=== PATIENT | male | born 1985 ===

== ENCOUNTER 2018-03-21 11:37 | Emergency (ER) | payer BC ==
[2018-03-21 11:52] VITALS: TEMP 98; BMI 42.7
--- NOTE | 2018-03-21 12:28 | ED PDOC ---
Arrival/HPI - General Chief Complaint: Cough, Cold, Congestion Historian: Patient - History of Present Illness Narrative History of Present Illness (Text): 03/21/18 12:24 32 y/o male, no significant pmh, nkda, c/o lt. sided chest pain x 2-4 weeks. Pt. stated that he flew to [facility] from [facility] about 4 weeks ago, been having coughing for the past 4 weeks, flew back from the [facility] about 2 weeks ago and still coughing, coughing associated with the left sided rib pain, aggravated by coughing and moving, no night sweat, no fever, no palpitation, no numbness or tingling, no rash, no change in vision, no other medical or psychological complaints. Past Medical History - Provider Review Nursing Documentation Reviewed: Yes - Travel History If Yes, travel location?: [facility] - Psychiatric Hx Substance Use: No - Surgical History Other/Comment: nose surgery - Anesthesia Hx Anesthesia: Yes Hx Anesthesia Reactions: No Hx Malignant Hyperthermia: No Family/Social History - Physician Review Nursing Documentation Reviewed: Yes Family/Social History: Unknown Family HX Smoking Status: Never Smoked Hx Alcohol Use: Yes Frequency of alcohol use: Socially Hx Substance Use: No Allergies/Home Meds Allergies/Adverse Reactions: Allergies No Known Allergies Allergy (Verified 03/21/18 12:00) Review of Systems - Review of Systems Constitutional: absent: Fatigue, Fevers Eyes: absent: Vision Changes ENT: absent: Hearing Changes Respiratory: Cough. absent: SOB, Sputum, Wheezing Cardiovascular: absent: Chest Pain Gastrointestinal: absent: Abdominal Pain, Nausea, Vomiting Musculoskeletal: Arthralgias. absent: Back Pain, Neck Pain, Joint Swelling, Myalgias Skin: absent: Rash, Pruritis Neurological: absent: Headache, Dizziness Psychiatric: absent: Anxiety, Depression Physical Exam Vital Signs Reviewed: Yes Vital Signs Temp Pulse Resp BP Pulse Ox 03/21/18 11:51 98.0 F 120 H 18 147/93 H 96 Temperature: Afebrile Blood Pressure: Hypertensive Pulse: Tachycardic Respiratory Rate: Normal Appearance: Positive for: Well-Appearing, Non-Toxic, Comfortable Pain Distress: Moderate Mental Status: Positive for: Alert and Oriented X 3 - Systems Exam Head: Present: Atraumatic, Normocephalic Pupils: Present: PERRL Extroacular Muscles: Present: EOMI Conjunctiva: Present: Normal Mouth: Present: Moist Mucous Membranes Neck: Present: Normal Range of Motion Respiratory/Chest: Present: Clear to Auscultation, Good Air Exchange, Tender to Palpation (lt. lateral rib cage intercostal muscle region tenderness with the pain 100% reproducible with no rash or step off noted. ). No: Respiratory Di stress, Accessory Muscle Use, Wheezes, Decreased Breath Sounds, Rales, Retracting, Rhonchi, Tachypneic Cardiovascular: Present: Regular Rate and Rhythm, Normal S1, S2. No: Murmurs Abdomen: No: Tenderness, Distention, Peritoneal Signs, Rebound, Guarding Back: Present: Normal Inspection. No: CVA Tenderness, Midline Tenderness, Paraspinal Tenderness, Pain with Leg Raise, Decubitus Ulcer Upper Extremity: Present: Normal Inspection. No: Cyanosis, Edema Lower Extremity: Present: Normal Inspection. No: Edema Neurological: Present: GCS=15, CN II-XII Intact, Speech Normal, Motor Func Grossly Intact, Gait Normal, Memory Normal Skin: Present: Warm, Dry, Normal Color. No: Rashes Psychiatric: Present: Alert, Oriented x 3, Normal Insight, Normal Concentration Medical Decision Making ED Course and Treatment: 03/21/18 12:37 -Labs -CXR -EKG -Toradol/IVF -Observe and reassess 03/21/18 14:55 -EKG: NSR @ 95 BPM, no ST elevation or depression, no T wave inversion. -CXR show Unremarkable radiographs of the chest and left ribs. No left rib fracture. -Labs show no acute fidnings -CK within normal limit -Mg within normal limit -Lipase within normal limit -Trop within normal limit after 24 hours onset -Dimer is negative (WELLS Criteria is 1.5) -HEART Score is low: 1 -UA -Pt. is still borderline tachycardia around 97-105 with worsening tachycardia at ambulatory, CTA ordered. 03/21/18 17:15 -UA show show no UTI but mild hematuria, no cva tenderness -UDS ordered and pending result -CTA show No central pulmonary emboli identified. Nondiagnostic study be on the left and right main pulmonary arteries. If the suspicion for pulmonary embolism remains either repeat CT pulmonary angiogram or ventilation perfusion scan recommended. -Pt. walks around in the ER with me which he has exertional tachycardia around 120s and hypoxic to 92%, not sure the etiology for this hypoxic and tachycardia, discussed with Dr. Castro about this case and recommend admission for observation. -I have long discussions with the patient about staying in the ER and hospitalization for further test/treatment and specialist consultation but he refused. AMA AMA ER The patient refuses to stay in the Emergency Room (ER) to continue the care and wishes to leave the emergency department against my medical advice. Patient was told that staying in the ER is necessary and a full explanation of the reasons why was given, and understood by the patient with alert and oriented x4. The risk of leaving were explained in laymans term and including but not limited pulmonary embolism, cardiac arrythmia, endocrinology disease, cardiopulmonary disease, myocardial infarction, sepsis, pain, worsening of condition, permanent disability and from an undiagnosed or untreated condition. The patient accepts these risks, and is in my judgment is competent and capable of understanding the clinical situation and explanation of the risk of leaving. The patient is able to verbally repeated me back the above explained risks and benefits back to me, and verbally expressed understanding. Patient was given the opportunity to ask questions and change mind. The patient was instructed regarding the best care for the present symptoms, and to follow up as soon as possible with the primary care doctor including specialist or return to the emergency department at any time for continuing care. -You signs out against medical advice. You were given zithromax/prednisone/albuterol/motrin but this is not the definitive treatment and not standard treatment. Please follow up with your own pmd and specialists as soon as possible, please come back to the ER for further evaluation if you like to continue the care. - RAD Interpretation Radiology Orders: Date of service: 03/21/2018 PROCEDURE: Radiographs of the Chest and Left Ribs. HISTORY: lt. rib pain x 2-4 weeks COMPARISON: None available. TECHNIQUE: Frontal radiograph of the chest and multiple oblique radiographs of the left ribs were obtained. FINDINGS: LEFT RIBS: No fracture or focal lesion visualized. LUNGS: Clear. PLEURA: No pneumothorax or pleural fluid. CARDIOVASCULAR: Normal cardiac size. No pulmonary vascular congestion. No aortic atherosclerotic calcification present OTHER FINDINGS: None. IMPRESSION: Unremarkable radiographs of the chest and left ribs. No left rib fracture. CTA Chest: Date of service: 03/21/2018 PROCEDURE: CT Chest with contrast (Pulmonary Angiogram) HISTORY: lt. sided chest pain/cough, tachy COMPARISON: None available. TECHNIQUE: Axial computed tomography images were obtained of the chest in the pulmonary arterial phase of enhancement. Coronal and sagittal reformatted images were created and reviewed. Intravenous contrast dose: 100 cc Omnipaque 350. Mean Hounsfield value in the main pulmonary artery: 84.66 Radiation dose: Total exam DLP = 531.60 mGy-cm. This CT exam was performed using one or more of the following dose reduction techniques: Automated exposure control, adjustment of the mA and/or kV according to patient size, and/or use of iterative reconstruction technique. FINDINGS: PULMONARY ARTERIES: No major pulmonary or emboli identified. Nondiagnostic study beyond the right and left main pulmonary arteries. AORTA: No acute findings. No thoracic aortic aneurysm. No atherosclerotic calcification or mural plaque present. LUNGS: Unremarkable. No nodule, mass or pulmonary consolidation. PLEURAL SPACES: Unremarkable. No effusion or pneumothorax. HEART: Unremarkable. No cardiomegaly. No significant pericardial effusion. LYMPH NODES: No lymphadenopathy. BONES, CHEST WALL: Unremarkable. No fracture or destructive lesion OTHER FINDINGS: Unremarkable. IMPRESSION: No central pulmonary emboli identified. Nondiagnostic study be on the left and right main pulmonary arteries. If the suspicion for pulmonary embolism remains either repeat CT pulmonary angiogram or ventilation perfusion scan recommended. 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 Disposition/Present on Arrival - Present on Arrival Any Indicators Present on Arrival: No History of DVT/PE: No History of Uncontrolled Diabetes: No Urinary Catheter: No History of Decub. Ulcer: No History Surgical Site Infection Following: None - Disposition Have Diagnosis and Disposition been Completed?: Yes Diagnosis: Cough, Rib pain on left side, Noncompliance, Tachycardia, Hematuria Disposition: AGAINST MEDICAL ADVICE Disposition Time: 17:36 Patient Problems: Current Active Problems Problem Status Onset Cough Acute Rib pain on left side Acute Condition: STABLE Discharge Instructions (ExitCare): Chest Pain (ED) Additional Instructions: -You signs out against medical advice. You were given zithromax/prednisone/albuterol/tessalon/motrin but this is not the definitive treatment and not standard treatment. Please follow up with your own pmd and specialists as soon as possible, please come back to the ER for further evaluation if you like to continue the care. Prescriptions: Albuterol HFA [Ventolin HFA 90 mcg/actuation (8 g)] 2 puff IH [id number] PRN #1 inhaler PRN Reason: Other Azithromycin [Zithromax] 250 mg PO DAILY #6 tab Benzonatate [Tessalon Perles] 200 mg PO TID PRN #30 sgl PRN Reason: Other Ibuprofen [Motrin Tab] 600 mg PO QID PRN #30 tab PRN Reason: Other Prednisone 50 mg PO DAILY #5 tablet Referrals: Monae Chen MD [Staff Provider] - Follow up with primary Fercho Beaver MD [Staff Provider] - Follow up with primary Saúl Anguiano MD [Staff Provider] - Follow up with primary Feng Beltran MD [Staff Provider] - Follow up with primary Forms: [id number] ([employer]), WORK NOTE
[2018-03-21] MEDS ORDERED: Sodium Chloride 0.9% 1,000 ML IV STA ×2 (12:34→14:44)
[2018-03-21 13:18] LABS: BASO # 0.02 K/mm3 (0.0-2.0); BASO % 0.3 % (0.0-3.0); EOS # 0.1 (0.0-0.7); EOS % 1.8 % (1.5-5.0); GRAN # 3.71 (1.4-6.5); GRAN % 54.6 % (50.0-68.0); LYMPH # 2.3 (1.2-3.4); LYMPH % 34.2 % (22.0-35.0); MEAN CELL VOLUME 86.8 fl (80.0-105.0); MEAN CORPUSCULAR HGB CONC 33.4 g/dl (31.0-37.0); MEAN PLATELET VOLUME 10.2 fl (7.0-11.0); MONO # 0.6 (0.1-0.6); MONO % 9.1 % (1.0-6.0); RBC 5.52 10^6/uL (3.5-6.1); RED CELL DISTRIBUTION WIDTH 13.4 % (11.5-14.5); WHITE BLOOD COUNT 6.8 10^3/uL (4.5-11.0)
[2018-03-21 13:28] LABS: ALB/GLOB RATIO 1.2 (1.1-1.8); ALBUMIN 4.2 g/dL (3.0-4.8); ALT/SGPT 144 U/L (7-56); AST/SGOT 54 U/L (17-59); BLOOD UREA NITROGEN 13 mg/dL (7-21); GFR NON-AFRICAN AMERICAN > 60; LIPASE 165 U/L (23-300)
[2018-03-21 13:39] LABS: TROPONIN I < 0.01 ng/mL
--- NOTE | 2018-03-21 14:17 | RAD ---
Date of service: 03/21/2018 PROCEDURE: Radiographs of the Chest and Left Ribs. HISTORY: lt. rib pain x 2-4 weeks COMPARISON: None available. TECHNIQUE: Frontal radiograph of the chest and multiple oblique radiographs of the left ribs were obtained. FINDINGS: LEFT RIBS: No fracture or focal lesion visualized. LUNGS: Clear. PLEURA: No pneumothorax or pleural fluid. CARDIOVASCULAR: Normal cardiac size. No pulmonary vascular congestion. No aortic atherosclerotic calcification present OTHER FINDINGS: None. IMPRESSION: Unremarkable radiographs of the chest and left ribs. No left rib fracture.
[2018-03-21 15:25] VITALS: O2SAT 97
[2018-03-21] MEDS ORDERED: Iohexol 350 MG/100 ML VIAL ONE (16:00)
[2018-03-21 16:40] LABS: URINE BILIRUBIN NEGATIVE (NEGATIVE); URINE BLOOD MODERATE (NEGATIVE); URINE GLUCOSE (UA) NEGATIVE (NEGATIVE); URINE LEUKOCYTE ESTERASE NEGATIVE Leu/uL (NEGATIVE); URINE PROTEIN TRACE mg/dL (<30 mg/dL); URINE UROBILINOGEN 0.2 E.U./dL (<1 E.U./dL)
[2018-03-21 16:41] LABS: B-TYPE NATRIURETIC PEPTIDE < 11.1 pg/mL (0-450)
--- NOTE | 2018-03-21 16:41 | CT ---
Date of service: 03/21/2018 PROCEDURE: CT Chest with contrast (Pulmonary Angiogram) HISTORY: lt. sided chest pain/cough, tachy COMPARISON: None available. TECHNIQUE: Axial computed tomography images were obtained of the chest in the pulmonary arterial phase of enhancement. Coronal and sagittal reformatted images were created and reviewed. Intravenous contrast dose: 100 cc Omnipaque 350. Mean Hounsfield value in the main pulmonary artery: 84.66 Radiation dose: Total exam DLP = 531.60 mGy-cm. This CT exam was performed using one or more of the following dose reduction techniques: Automated exposure control, adjustment of the mA and/or kV according to patient size, and/or use of iterative reconstruction technique. FINDINGS: PULMONARY ARTERIES: No major pulmonary or emboli identified. Nondiagnostic study beyond the right and left main pulmonary arteries. AORTA: No acute findings. No thoracic aortic aneurysm. No atherosclerotic calcification or mural plaque present. LUNGS: Unremarkable. No nodule, mass or pulmonary consolidation. PLEURAL SPACES: Unremarkable. No effusion or pneumothorax. HEART: Unremarkable. No cardiomegaly. No significant pericardial effusion. LYMPH NODES: No lymphadenopathy. BONES, CHEST WALL: Unremarkable. No fracture or destructive lesion OTHER FINDINGS: Unremarkable. IMPRESSION: No central pulmonary emboli identified. Nondiagnostic study be on the left and right main pulmonary arteries. If the suspicion for pulmonary embolism remains either repeat CT pulmonary angiogram or ventilation perfusion scan recommended.
[2018-03-21 16:46] LABS: URINE APPEARANCE SL CLOUDY (CLEAR); URINE COLOR YELLOW (YELLOW)
[2018-03-21 16:54] LABS: URINE WBC 0 - 2 /hpf (0-6)
[2018-03-21 17:11] VITALS: BP 119/72; PULSE 105; RESP 17
[2018-03-21 17:20] LABS: BARBITURATES, UR NEGATIVE (NEGATIVE); BENZODIAZEPINES, UR NEGATIVE (NEGATIVE); OPIATES, UR NEGATIVE (NEGATIVE); PHENCYCLIDINE, UR NEGATIVE (NEGATIVE)
--- NOTE | 2018-03-21 18:41 | CARD ---
APPROVED REPORT Date of service: 03/21/2018 EKG Measurement Heart [id number] <Conclusion> Normal sinus rhythm Normal ECG
== END 2018-03-21 18:01 | disposition left against medical advice (07) ==
LOC: ED 11:37
DX: R00.0 Tachycardia, unspecified (principal); R07.9 Chest pain, unspecified; R05 Cough; R31.9 Hematuria, unspecified; Z91.19 Patient's noncompliance with other medical treatment and regimen
CPT/HCPCS: 71101; 71275; 80053; 81001; 82550; 83690; 83735; 83880; 84484; 85025; 85378; 93005; 96361; 96374; 99285; G0480; J1885; J7030; Q9967